=== PATIENT | female | born 1980 | race Hispanic/Latino ===

== ENCOUNTER 2024-04-11 18:18 | Emergency (ER) | payer OTHER ==
[~2024-04-11] VITALS: Ht 157.5 cm; Wt 91.2 kg
[2024-04-11 19:31] LABS: ADD UA MICROSCOPIC YES; APPEARANCE,URINE CLOUDY (CLEAR); BILIRUBIN,URINE NEGATIVE (NEGATIVE); COLOR,URINE YELLOW (YELLOW); GLUCOSE, URINE (UA) 50 mg/dL (NEGATIVE); KETONES,URINE 10 mg/dL (NEGATIVE); LEUKOCYTE ESTERASE ,URINE NEGATIVE Leu/uL (NEGATIVE); NITRATE,URINE NEGATIVE (NEGATIVE); OCCULT BLOOD,URINE LARGE (NEGATIVE); PH,URINE 5.5 (5.0-8.0); PROTEIN,URINE 70 mg/dL (NEGATIVE)
[2024-04-11 19:33] LABS: BACTERIA,URINE RARE /HPF (None Seen); MUCUS,URINE FEW LPF (None Seen); RBC,URINE >100 /HPF (0-1); SQUAMOUS EPITHELIAL CELL,UR RARE /HPF (0-2); UNCLASSIFIED CRYSTAL 5 /HPF (None Seen)
[2024-04-11] MEDS: morPHINE 2 MG SYG IVP STA (20:00)
[2024-04-11] MEDS: 0.9%NACL 1000ML 1,000 ML IV STA (20:00)
[2024-04-11] MEDS: ondanSETRON 4MG INJ IVP STA (20:00)
[2024-04-11] MEDS: cefTRIAXone 1G VIAL IVPB STA (20:40)
[2024-04-11] MEDS: ketOROlac 15MG/ML VIAL (15MG/ML) IV STA (20:40)
[2024-04-11] MEDS: hydroMORPHone 1 MG INJ ONE (20:41)
[2024-04-11] MEDS: hydroMORPHone 1 MG INJ IVP ONE (20:41)
[2024-04-11 20:42] LABS: BASOPHILS # (AUTO) 0.05 K/uL (0.00-0.20); BASOPHILS % (AUTO) 0.4 % (0.0-5.0); EOSINOPHILS # (AUTO) 0.34 K/uL (0.00-0.70); EOSINOPHILS % (AUTO) 2.8 % (0.0-8.0); HEMATOCRIT 39.7 % (36-48); IMMATURE GRANULOCYTE ABSOLUTE 0.05 K/uL (0-1); LYMPHOCYTES # (AUTO) 4.6 K/uL (1.0-4.8); LYMPHOCYTES % (AUTO) 37.8 % (21.0-51.0); MEAN CORPUSCULAR HEMOGLOBIN 29.5 pg (27.0-33.0); MEAN CORPUSCULAR HGB CONC 34.3 g/dL (32.0-36.0); MEAN CORPUSCULAR VOLUME 86.1 fL (79-99); MONOCYTES # (AUTO) 0.7 K/uL (0.1-1.0); MONOCYTES % (AUTO) 5.5 % (3.0-13.0); NEUTROPHILS # (AUTO) 6.5 K/uL (1.8-7.7); NEUTROPHILS % (AUTO) 53.1 % (40.0-77.0); PLATELET COUNT (AUTO) 338 K/uL (130-400); RED BLOOD CELL COUNT(AUTO) 4.61 MIL/uL (4.00-5.50); RED CELL DISTRIBUTION WIDTH 13.7 % (11.0-15.5); WHITE BLOOD COUNT (AUTO) 12.3 K/uL (4.8-10.8)
--- NOTE | 2024-04-11 21:07 | ERN ---
ED Note History of Present Illness Stated Complaint: LOWER ABDOMINAL PAIN Chief Complaint: Abdominal Pain Time Seen by MD: 18:26 Time Seen by Midlevel: 18:33 Dictation: 44-year-old female with no past medical history complaining of severe left lower quadrant pain radiating to suprapubic area. Patient states she has a history of kidney stones, has been constipated for three days and took magnesium citrate this morning. Patient states she has a history of a hysterectomy in November. Allergies: Coded Allergies: No Known Drug Allergies (Unverified Allergy, Unknown, 04/11/24) Past Medical History Past Medical History: Unknown Surgical History: None Review of System Dictation Constitutional: Negative for fever,chills, and weight loss Eyes: Negative for injury, pain,redness, and discharge ENT: Negative for injury,pain or swelling Cardiovascular: Negative for chest pain, palpitations, and edema Respiratory: Negative for shortness of breath, cough, and wheezing, Abdomen/GI: Complaining of left lower quadrant pain and suprapubic pain, nausea, vomiting, diarrhea, and constipation Back: Negative for injury and pain : Negative for injury, bleeding and discharge MS/Extremity: Negative for injury and deformity Skin: Negative for rash, and discoloration Neuro: Negative for headache, weakness, numbness, tingling, and seizure Psych: Negative for suicide ideation, homicidal ideation, and hallucinations Review of Systems: was completed Initial Vital Sign VS Vital Signs Date Time Temp Pulse Resp B/P (MAP) Pulse Ox O2 Delivery O2 Flow Rate FiO2 04/11/24 19:16 98.1 96 20 130/90 97 Room Air 04/11/24 20:00 0 21 Physical Exam Dictation General: awake, alert, NAD Head/Face: Normocephalic, atraumatic Eyes: PERRL, EOMI, vision at baseline ENT: oral cavity clear, TMs clear, no signs of infection Neck: Trachea midline, supple, no nuchal rigidity Cardiovascular: RRR, normal S1/S2, No MRGs, no JVD Respiratory: CTAB, no respiratory distress, No rales or wheezes Abdomen: Soft, severe left lower quadrant pain and suprapubic pain , non- distended, normal bowel sounds, no guarding or rebound. Skin: Warm, dry, normal turgor, no rash MS/Extremity: Pulses equal, no cyanosis, neurovascular intact, FROM Neuro: COAx4, GCS 15, strength 5/5, CN 2-12 intact, normal cerebellar exam, normal gait, Psych: Normal behavior, mood, and affect normal Results (Laboratory/Radiology) Laboratory/Radiology Laboratory Tests Test 04/11/24 19:22 04/11/24 19:52 Urine Color YELLOW (YELLOW) Urine Appearance CLOUDY (CLEAR) H Urine pH 5.5 (5.0-8.0) Urine Specific [employer] [place] 1.029 (1.001-1.031) Urine Protein 70 mg/dL (NEGATIVE) H Urine Glucose (UA) 50 mg/dL (NEGATIVE) H Urine Ketones 10 mg/dL (NEGATIVE) H Urine Occult Blood LARGE (NEGATIVE) H Urine Nitrate NEGATIVE (NEGATIVE) Urine Bilirubin NEGATIVE mg/dL (NEGATIVE) Urine Urobilinogen 2.0 mg/dL (0.2-1.0) H Urine Leukocyte Esterase NEGATIVE Rk/uL Urine RBC >100 /HPF (0-1) H Urine WBC 11-25 /HPF (0-1) H Urine Squamous Epithelial Cells RARE /HPF (0-2) Urine Other Crystals (Auto) 5 /HPF (None Seen) Urine Bacteria RARE /HPF (None Seen) White Blood Count 12.3 K/uL (4.8-10.8) H Red Blood Count 4.61 MIL/uL (4.00-5.50) Hemoglobin 13.6 g/dL (12.0-16.0) Hematocrit 39.7 % (36-48) Mean Corpuscular Volume 86.1 fL (79-99) Mean Corpuscular Hemoglobin 29.5 pg (27.0-33.0) Mean Corpuscular Hemoglobin Concent 34.3 g/dL (32.0-36.0) Red Cell Distribution Width 13.7 % (11.0-15.5) Platelet Count 338 K/uL (130-400) Mean Platelet Volume 10.0 fL (7.5-10.5) Immature Granulocyte % (Auto) 0.4 % (0-1) Neutrophils (%) (Auto) 53.1 % (40.0-77.0) Lymphocytes (%) (Auto) 37.8 % (21.0-51.0) Monocytes (%) (Auto) 5.5 % (3.0-13.0) Eosinophils (%) (Auto) 2.8 % (0.0-8.0) Basophils (%) (Auto) 0.4 % (0.0-5.0) Neutrophils # (Auto) 6.5 K/uL (1.8-7.7) Lymphocytes # (Auto) 4.6 K/uL (1.0-4.8) Monocytes # (Auto) 0.7 K/uL (0.1-1.0) Eosinophils # (Auto) 0.34 K/uL (0.00-0.70) Basophils # (Auto) 0.05 K/uL (0.00-0.20) Absolute Immature Granulocyte (auto 0.05 K/uL (0-1) Nucleated Red Blood Cells 0.0 % (0.0-0.19) Urine HCG, Qualitative NEGATIVE (NEGATIVE) Sodium Level 143 mmol/L (136-145) Potassium Level 3.7 mmol/L (3.5-5.1) Chloride Level 108 mmol/L (101-111) Carbon Dioxide Level 24 mmol/L (21-32) Blood Urea Nitrogen 15 mg/dL (7-18) Creatinine 0.6 mg/dL (0.5-1.0) Glomerular Filtration Rate Calc 115 mL/min (>90) Random Glucose 114 mg/dL (70-105) H Total Calcium 9.1 mg/dL (8.5-10.1) Total Bilirubin 0.6 mg/dL (0.2-1.0) Aspartate Amino Transf (AST/SGOT) 9 U/L (10-37) L Alanine Aminotransferase (ALT/SGPT) 13 U/L (12-78) Alkaline Phosphatase 80 U/L (50-136) Total Protein 7.1 g/dL (6.0-8.3) Albumin 3.4 g/dL (3.5-5.0) L Human Chorionic Gonadotropin, Quant 0 mIU/mL (0-5) Labs Reviewed?: Yes CT Scan Comment: [place] [id number] [id number] IMAGING REPORT Signed PATIENT: JULIANE RUSH MR#: [id number] : 1980 SEX: F AGE: 44 LOCATION: [facility] ORDER 37 STATUS: REG ER REPORT#: [id number] SERVICE 36 REASON: r/o kidney stone ORDERING PHYSICIAN: TYLER CHATTERJEE PROCEDURE: ABD PEL WO - CT ABDOMEN/PELVIS W/O CONTRAST CT ABDOMEN/PELVIS W/O CONTRAST CLINICAL HISTORY: Left inguinal pain COMPARISON: None TECHNIQUE: Sequential axial images of abdomen and pelvis without contrast and with sagittal and coronal reconstructions. CT was performed with one or more of the following dose reduction techniques: automated exposure control, adjustment of the mA and/or kV according to patient size, or use of iterative reconstruction technique FINDINGS: Lung bases are clear. The liver and spleen are unremarkable. The gallbladder is surgically absent. The pancreas and adrenal glands are unremarkable. There is punctate nonobstructing right renal calculus. There is a punctate calculus demonstrated sitting dependently in the bladder versus in the left ureteral terminus with minimal left hydronephrosis as well as a punctate nonobstructive left renal calculus. There is no identified bowel obstruction. Note is made of change from prior gastric band surgery with no identified bowel obstruction. There is a small fat-containing umbilical hernia. There is no identified free or free fluid. The uterus is surgically absent. The bony structures are unremarkable. IMPRESSION: Change for gastric band surgery. Minimal left hydronephrosis with punctate calculus demonstrated in the left ureteral terminus versus sitting dependently in the bladder. There is also punctate nonobstructive left renal upper pole calculus. DICTATED BY: JOSSELYN AZEVEDO DO DATE: 04/11/242117 ELECTRONICALLY SIGNED BY: JOSSELYN AZEVEDO DO DATE: 04/11/242125 ED Course ED Course Orders Procedure Category Date Status Time Cbc With Differential LAB 04/11/24 Complete 18:54 Comprehensive LAB 04/11/24 Complete Metabolic Panel 18:54 Urinalysis Profile LAB 04/11/24 Complete 18:54 Hcg,Quantitative LAB 04/11/24 Complete 18:54 0.9%Nacl 1000ml (Ns PHA 04/11/24 Complete 1000ml) 18:54 Ondansetron 4mg Inj PHA 04/11/24 Complete (Zofran 4mg Inj) 18:54 Morphine 2mg Syg PHA 04/11/24 Complete (Morphine 2mg Syg) 18:54 Culture Urine AMBROSIO 04/11/24 In Process 19:34 Ct Abdomen/Pelvis W/O CT 04/11/24 Resulted Contrast 19:37 Ketorolac PHA 04/11/24 Complete Tromethamine 15mg/Ml 19:42 Ceftriaxone 1g Vial PHA 04/11/24 Complete (Rocephine 1g Inj) 19:42 Us Pelvic Non-Ob Comp US 04/11/24 Taken 19:55 ,Urine Test LAB 04/11/24 Complete 20:12 Hydromorphone 1 Mg PHA 04/11/24 Complete Inj (Dilaudid 1mg Inj 21:00 Hydromorphone 1 Mg PHA 04/11/24 Complete Inj (Dilaudid 1mg Inj 20:40 Tamsulosin Hcl PHA 04/11/24 Verified (Flomax) 22:02 Current Medications Medications (Trade) Dose Ordered Sig/Mindi Route PRN Reason Start Time Stop Time Status Last Admin Dose Admin Ceftriaxone Sodium (ROCEphine 1G INJ) 1 gm ONCE STAT IVPB 04/11/24 19:42 04/11/24 20:26 DC 04/11/24 20:40 Hydromorphone HCl (DiLAUDid 1MG INJ) 1 mg ONCE ONCE IVP 04/11/24 21:00 04/11/24 21:01 DC 04/11/24 20:41 Hydromorphone HCl (DiLAUDid 1MG INJ) 1 mg STK-MED ONCE .ROUTE 04/11/24 20:40 04/11/24 20:40 DC Ketorolac Tromethamine (toRADol) 15 mg ONCE STAT IV 04/11/24 19:42 04/11/24 20:26 DC 04/11/24 20:40 Morphine Sulfate (morPHINE 2MG SYG) 2 mg ONCE STAT IVP 04/11/24 18:54 04/11/24 18:57 DC 04/11/24 20:00 Ondansetron HCl (zoFRAN 4MG INJ) 4 mg ONCE STAT IVP 04/11/24 18:54 04/11/24 18:56 DC 04/11/24 20:00 Sodium Chloride 1,000 ml @ 1,000 mls/hr Q1H STAT IV 04/11/24 18:54 04/11/24 19:53 DC 04/11/24 20:00 Vital Signs Date Time Temp Pulse Resp B/P (MAP) Pulse Ox O2 Delivery O2 Flow Rate FiO2 04/11/24 20:00 98.1 108 23 131/85 98 Room Air* 0 21 04/11/24 19:16 98.1 96 20 130/90 97 Room Air Medical Decision Making MDM MDM: 44-year-old female with no past medical history complaining of severe left lower quadrant pain radiating to suprapubic area. Patient states she has a history of kidney stones, has been constipated for three days and took magnesium citrate this morning. Patient states she has a history of a hysterectomy in November.CBC shows mild leukocytosis of 12, no anemia, no thrombocytopenia. Chemistries unremarkable, normal kidney function. No transaminitis. Patient isn't . UA shows evidence of mild urinary tract infection with hematuria. CT scan of the abdomen with the contrast ordered along with non OB pelvic ultrasound to rule out any ovarian torsion or cyst. CT scan of the abdomen and pelvis shows minimal left hydronephrosis with punctate calculus demonstrated in the left ureteral turbinates versus sitting independently in bladder, there is also a nonobstructive left renal upper pole calculus. After pain medication patient states the pain has resolved. Discussed patient on findings and educated her that I will discharge patient on pain medication, Flomax and antibiotics. Educated patient on signs and symptoms on when to return back to the emergency room like fever, nausea, vomiting. Patient verbalized understanding, answered all questions. Differential diagnosis: UTI, SBO, diverticulitis, kidney stone, ovarian torsion, ovarian cyst Rationale: Tests considered and ordered secondary to shared decision making include: Previous outside records reviewed: Old ER visits. Risk of complication and/or morbidity or mortality of patient management: None Medications-Per medication reconciliation Need for hospitalization: Patient does not meet criteria for hospitalization. Need for emergency major/minor surgery: No There are no social concerns with this patient. Prescription drug management Prescriptions will include symptomatic care Patient's prior external medical records from other ER visits were reviewed by me as indicated. Prior testing and results from previous visits were reviewed. Prior tests were taken into account with medical decision making and resource utilization, independent historian/historians were used to obtain complete medical history. I independently interpreted the test that were performed, results were reviewed by me and considered findings on radiology if ordered. Medical management and examination interpretation discussions were had by me with other qualified healthcare professionals as indicated for the patient's care. DX & DISP Disposition: Discharge Departure Impression: Primary Impression: Kidney stone on left side Condition: Stable Scripts Sulfamethoxazole/Trimethoprim (Bactrim Ds Tablet) 800 Mg-160 Mg Tablet 1 TAB PO BID for 7 Days, #14 TAB 0 Refills Prov: FRANCISCO KUMARI [employer] 04/11/24 Lactulose (Lactulose) 20 Gram/30 Ml Solution 30 ML PO DAILY for constipation for 30 Days, #900 ML 0 Refills Prov: FRANCISCO KUMARI [employer] 04/11/24 Ketorolac Tromethamine (Ketorolac Tromethamine) 10 Mg Tablet 1 TAB PO Q6HPRN PRN for pain for 5 Days, #20 TAB 0 Refills Prov: FRANCISCO KUMARI NP 04/11/24 Tamsulosin HCl (Flomax) 0.4 Mg Cap.er.24h 1 CAP PO DAILY for 30 Days, #30 CAP 0 Refills Prov: FRANCISCO KUMARI [employer] 04/11/24 Additional Instructions: You can add Tylenol to control your pain aside from the ketorolac that I prescribed. Please return to the emergency room if you develop fevers, nausea, vomiting or back pain. Follow up with primary doctor or urologist in 1-2 days. Referrals: JUANA WOLF MD (PCP) SUMEET NICKERSON MD Time of Disposition: 22:08 I have reviewed the case, and I agree with, Diagnosis and Plan FRANCISCO KUMARI NP Apr 11, 2024 21:07
[2024-04-11 21:11] LABS: CREATININE 0.6 mg/dL (0.5-1.0); POTASSIUM 3.7 mmol/L (3.5-5.1)
[2024-04-11 21:22] LABS: ALBUMIN 3.4 g/dL (3.5-5.0); BILIRUBIN,TOTAL 0.6 mg/dL (0.2-1.0); TOTAL PROTEIN, SERUM 7.1 g/dL (6.0-8.3)
--- NOTE | 2024-04-11 21:26 | HMCIMG ---
CT ABDOMEN/PELVIS W/O CONTRAST CLINICAL HISTORY: Left inguinal pain COMPARISON: None TECHNIQUE: Sequential axial images of abdomen and pelvis without contrast and with sagittal and coronal reconstructions. CT was performed with one or more of the following dose reduction techniques: automated exposure control, adjustment of the mA and/or kV according to patient size, or use of iterative reconstruction technique FINDINGS: Lung bases are clear. The liver and spleen are unremarkable. The gallbladder is surgically absent. The pancreas and adrenal glands are unremarkable. There is punctate nonobstructing right renal calculus. There is a punctate calculus demonstrated sitting dependently in the bladder versus in the left ureteral terminus with minimal left hydronephrosis as well as a punctate nonobstructive left renal calculus. There is no identified bowel obstruction. Note is made of change from prior gastric band surgery with no identified bowel obstruction. There is a small fat-containing umbilical hernia. There is no identified free or free fluid. The uterus is surgically absent. The bony structures are unremarkable. IMPRESSION: Change for gastric band surgery. Minimal left hydronephrosis with punctate calculus demonstrated in the left ureteral terminus versus sitting dependently in the bladder. There is also punctate nonobstructive left renal upper pole calculus.
[2024-04-11] MEDS ORDERED: LACT10SO9 PO (22:08)
[2024-04-11] MEDS ORDERED: KETO10TA2 PO (22:08)
[2024-04-11] MEDS ORDERED: SULF1TAB42 PO (22:08)
[2024-04-11] MEDS ORDERED: TAMS-1 PO (22:08)
[2024-04-11] MEDS: tamSULOsin HCL 0.4 MG CAP.ER.24H PO STA (22:12)
[2024-04-11 22:13] VITALS: BP 129/79; PULSE 87; RESP 19; TEMP 98.3; O2SAT 98
--- NOTE | 2024-04-11 23:38 | HMCIMG ---
US PELVIC NON-OB COMP HISTORY: 04/11/2024 COMPARISON: None TECHNIQUE: Transabdominal pelvic ultrasound study was performed. FINDINGS: The uterus has been removed. The right ovary is not well visualized. The left ovary measures 2 x 1.8 x 2.3 cm. The study is limited due to overlying bowel gas. Fluid is seen in left ovary. No free fluid is seen in the cul-de-sac. IMPRESSION: 1. No adnexal mass is seen.
== END 2024-04-11 22:18 | disposition home or self-care (01) ==
LOC: EDH 18:18
DX: N13.2 Hydronephrosis with renal and ureteral calculous obstruction (principal); R10.2 Pelvic and perineal pain
CPT/HCPCS: 99285; 74176; 96374; 96375; 76856; 96361; 80053; 84702; 85025; 87086; 81001; 81025; 36415; J1885; J1171; J2270; J7030; J0696; J2405

== ENCOUNTER 2024-07-18 09:15 | Emergency (ER) | payer OTHER ==
[~2024-07-18] VITALS: Ht 157.5 cm; Wt 90.7 kg
[~2024-07-18 09:15] MED LIST: KETO10TA2 PO; LACT10SO9 PO; SULF1TAB42 PO; TAMS-55 PO
--- NOTE | 2024-07-18 09:26 | ERN ---
General Chief Complaint: Abdominal Pain Stated Complaint: ABD PAIN, DIARRHEA Time Seen by MD: 09:17 Source: patient History of Present Illness Initial Comments Patient is a 44-year-old female coming in with diarrhea. She states that these symptoms began three days ago she was states that she does not recall having eaten anything abnormal. She does disclose that she does smoke marijuana. Allergies: Coded Allergies: No Known Drug Allergies (Unverified Allergy, Unknown, 04/11/24) Home Meds Active Scripts Sulfamethoxazole/Trimethoprim (Bactrim Ds Tablet) 800 Mg-160 Mg Tablet, 1 TAB PO BID for 7 Days, #14 TAB 0 Refills Prov:FRANCISCO KUMARI PROGRAM MANAGER RN 04/11/24 Lactulose (Lactulose) 20 Gram/30 Ml Solution, 30 ML PO DAILY for constipation for 30 Days, #900 ML 0 Refills Prov:FRANCISCO KUMARI PROGRAM MANAGER RN 04/11/24 Ketorolac Tromethamine (Ketorolac Tromethamine) 10 Mg Tablet, 1 TAB PO Q6HPRN PRN for pain for 5 Days, #20 TAB 0 Refills Prov:FRANCISCO KUMARI PROGRAM MANAGER RN 04/11/24 Tamsulosin HCl (Flomax) 0.4 Mg Cap.er.24h, 1 CAP PO DAILY for 30 Days, #30 CAP 0 Refills Prov:FRANCISCO KUMARI PROGRAM MANAGER RN 04/11/24 Past Medical History Past Medical History: Diabetes-Type II, Hypertension, Unknown Past Surgical History: Hysterectomy, Cholecystectomy, Surgical History Other: LT ANKLE ROS Dictation CONSTITUTIONAL: No chills, no fever, no weakness, no diaphoresis, no malaise. HEAD/FACE: No signs of trauma. EENT: No eye pain, no blurred vision, no tearing, no double vision, no ear pain, no ear discharge, no nose pain, no nasal congestion, no throat pain, no throat swelling, no mouth pain. RESPIRATORY: No cough, no orthopnea, no SOB, no stridor, no wheezing. CARDIOVASCULAR: No chest pain, no edema, no palpitations, no syncope. GASTROINTESTINAL/ABDOMINAL: No abdominal pain, no constipation, no diarrhea, no nausea, no vomiting. GENITOURINARY: No abnormal discharge, no dysuria, no frequent urination, no hematuria. No complaints of pain in the genitals. MUSCULOSKELETAL: No back pain, no gout, no joint pain, no joint swelling, no muscle pain, no muscle stiffness, no neck pain. INTEGUMENTARY: No change in color, no change in hair/nails, no dryness, no lesion, no lumps, no rash. NEUROLOGICAL/PSYCH: No anxiety, not depressed, no emotional problem, no headache, no numbness, no pre-existing deficit, no history of seizures, no tremors, no weakness. HEMATOLOGIC/LYMPHATIC: Not anemic, no history of blood clots, no apparent bleeding, no bruising, glands not swollen. All Systems Negative, Except as Noted. Physical Exam Physical Exam Dictation VITAL SIGNS: Reviewed. GENERAL APPEARANCE: Alert, oriented x3, no acute distress, obese. HEAD AND FACE: Non-traumatic. EYES: PERRL, pink conjunctivas, eyelid no trauma, anterior chamber clear. EARS: Pinnas intact and no signs of trauma or erythema. Ear canals clear and no discharge. TMs no erythema. NOSE: No discharge, no bleeding. OROPHARYNX: Mouth normal, teeth no caries, tongue pink. Pharynx clear, no erythema. Tonsils no exudates, no abscesses noted. Mucous membrane moist. NECK: Supple, non-tender, no thyromegaly, no masses, no JVD, no bruits. BREAST: Deferred. CHEST: No tenderness, no crepitus, no paradoxical movement, no retractions. LUNGS: Clear, well-ventilated, symmetric, no rales, no wheezing, no rhonchi, no stridor, good breath sounds bilaterally. HEART: Regular rate, regular rhythm, no murmur, no gallops. VASCULAR: No peripheral edema. ABDOMEN: Soft, positive bowel sounds, nondistended, no guarding, nontender, no rebound, no masses no hepatomegaly, no splenomegaly, no Foster's sign, no he rnias. RECTAL: Deferred. GENITAL: Deferred. NEUROLOGICAL: Normal speech, gross motor function intact, gross sensory functio n intact. MUSCULOSKELETAL: Neck nontender, full range of motion, back nontender, full range of motion. EXTREMITIES: Nontender, full range of motion. SKIN: Color pink, dry, no turgor, no rash, no lacerations, no abrasions, no contusions. LYMPHATICS: Deferred. Results Laboratory and Microbiology Lab and Micro Result Laboratory Tests Test 07/18/24 09:46 07/18/24 10:45 White Blood Count 9.8 K/uL (4.8-10.8) Red Blood Count 5.02 MIL/uL (4.00-5.50) Hemoglobin 15.0 g/dL (12.0-16.0) Hematocrit 44.9 % (36-48) Mean Corpuscular Volume 89.4 fL (79-99) Mean Corpuscular Hemoglobin 29.9 pg (27.0-33.0) Mean Corpuscular Hemoglobin Concent 33.4 g/dL (32.0-36.0) Red Cell Distribution Width 13.3 % (11.0-15.5) Platelet Count 318 K/uL (130-400) Mean Platelet Volume 9.7 fL (7.5-10.5) Immature Granulocyte % (Auto) 0.2 % (0-1) Neutrophils (%) (Auto) 63.2 % (40.0-77.0) Lymphocytes (%) (Auto) 28.7 % (21.0-51.0) Monocytes (%) (Auto) 5.3 % (3.0-13.0) Eosinophils (%) (Auto) 2.2 % (0.0-8.0) Basophils (%) (Auto) 0.4 % (0.0-5.0) Neutrophils # (Auto) 6.2 K/uL (1.8-7.7) Lymphocytes # (Auto) 2.8 K/uL (1.0-4.8) Monocytes # (Auto) 0.5 K/uL (0.1-1.0) Eosinophils # (Auto) 0.22 K/uL (0.00-0.70) Basophils # (Auto) 0.04 K/uL (0.00-0.20) Absolute Immature Granulocyte (auto 0.02 K/uL (0-1) Nucleated Red Blood Cells 0.0 % (0.0-0.19) Sodium Level 135 mmol/L (136-145) L Potassium Level 3.7 mmol/L (3.5-5.1) Chloride Level 100 mmol/L (101-111) L Carbon Dioxide Level 25 mmol/L (21-32) Blood Urea Nitrogen 9 mg/dL (7-18) Creatinine 0.7 mg/dL (0.5-1.0) Glomerular Filtration Rate Calc 111 mL/min (>90) Random Glucose 104 mg/dL (70-105) Total Calcium 8.8 mg/dL (8.5-10.1) Total Bilirubin 1.2 mg/dL (0.2-1.0) H Aspartate Amino Transf (AST/SGOT) 13 U/L (10-37) Alanine Aminotransferase (ALT/SGPT) 15 U/L (12-78) Alkaline Phosphatase 84 U/L (50-136) Total Creatine Kinase 35 U/L (21-232) Troponin I High Sensitivity < 4 ng/L (4-50) L Total Protein 7.4 g/dL (6.0-8.3) Albumin 3.7 g/dL (3.5-5.0) Lipase 78 U/L (16-77) H Urine Color LIGHT-YELLOW (YELLOW) Urine Appearance CLEAR (CLEAR) Urine pH 5.5 (5.0-8.0) Urine Specific [place] 1.024 (1.001-1.031) Urine Protein NEGATIVE mg/dL (NEGATIVE) Urine Glucose (UA) >=1000 mg/dL (NEGATIVE) H Urine Ketones 100 mg/dL (NEGATIVE) H Urine Occult Blood +- (TRACE) (NEGATIVE) H Urine Nitrate NEGATIVE (NEGATIVE) Urine Bilirubin NEGATIVE mg/dL (NEGATIVE) Urine Urobilinogen 0.2 mg/dL (0.2-1.0) Urine Leukocyte Esterase NEGATIVE Rk/uL Urine RBC 6-10 /HPF (0-1) H Urine WBC 0-1 /HPF (0-1) Urine Squamous Epithelial Cells Few /HPF (0-2) Urine Bacteria None Seen /HPF (None Seen) Urine HCG, Qualitative NEGATIVE (NEGATIVE) Urine Opiates Screen NEGATIVE (NEGATIVE) Urine Barbiturates Screen NEGATIVE (NEGATIVE) Urine Phencyclidine Screen NEGATIVE (NEGATIVE) Urine Amphetamines Screen NEGATIVE (NEGATIVE) Urine Benzodiazepines Screen NEGATIVE (NEGATIVE) Urine Cocaine Screen NEGATIVE (NEGATIVE) Urine Marijuana (THC) Screen POSITIVE (NEGATIVE) H Labs Reviewed?: Yes EKG/XRAY/US/CT/MRI EKG Comment 07/18/2024 time 9:38 a.m. Ventricular rate 90 Sinus rhythm [place] [address] wave elevation or depression X-RAY Comment [place] [address] [place] [id number] IMAGING REPORT Signed PATIENT: JULIANE RUSH MR#: [id number] : 1980 SEX: F AGE: 44 LOCATION: [facility] ORDER 0 STATUS: REG ER REPORT#: [id number] SERVICE 9 REASON: cp ORDERING PHYSICIAN: KIM GARCIA MD PROCEDURE: CXR1VW - CHEST 1VW Exam Type: CHEST 1VW Clinical Information: cp Comparison: None Findings: The lungs are clear of infiltrates. The heart is normal in size. The bony and soft tissue structures of the chest are unremarkable. Impression: Clear lungs. DICTATED BY: CLARITA SHAHID MD DATE: 07/18/24950 ELECTRONICALLY SIGNED BY: CLARITA SHAHID MD DATE: 07/18/24955 MDM MDM: Differential diagnosis: Cannabis abuse gastroenteritis, medication side effects Rationale: Tests considered and ordered secondary to shared decision making include: Previous outside records reviewed: Old ER visits. Risk of complication and/or morbidity or mortality of patient management: None Patient is a 44-year-old female coming in to be evaluated for diarrhea abdominal discomfort. She states that she was recently started on Mounjaro and has been smoking cannabis. Laboratory workup she was dehydrated received IV fluids as well as IV Protonix she states her symptoms improved. I did advise her to abstain from smoking marijuana and to follow up with the PCP to scale back on the Mounjaro. ED Course Orders Procedure Category Date Status Time Cbc With Differential LAB 07/18/24 Complete 09:20 Comprehensive LAB 07/18/24 Complete Metabolic Panel 09:20 Troponin I High LAB 07/18/24 Complete Sensitivity 09:20 ,Urine Test LAB 07/18/24 Complete 09:20 Urinalysis Profile LAB 07/18/24 Complete 09:20 12 Lead Ekg Tracing- EKG 07/18/24 Complete Technical 09:20 Lactated Ringers PHA 07/18/24 Complete 1000ml (Lactated 09:30 Ondansetron 4mg Inj PHA 07/18/24 Complete (Zofran 4mg Inj) 09:30 Lidocaine Hcl 2% PHA 07/18/24 Complete Viscous (Lidocaine Hcl 09:30 Mag/Alum/Simeth 30ml PHA 07/18/24 Complete (Maalox Plus 30ml) 09:30 Pantoprazole 40mg Inj PHA 07/18/24 Complete (Protonix 40mg Inj 09:30 Creatine Kinase, Total LAB 07/18/24 Complete 09:20 Chest 1vw RAD 07/18/24 Resulted 09:20 Lipase LAB 07/18/24 Complete 09:20 Drug Screen Urine LAB 07/18/24 Complete 09:24 0.9%Nacl 1000ml (Ns PHA 07/18/24 In Process 1000ml) 10:00 Ketorolac PHA 07/18/24 Complete Tromethamine 30mg/Ml 10:30 Ketorolac PHA 07/18/24 Complete Tromethamine 30mg/Ml 10:30 Current Medications Medications (Trade) Dose Ordered Sig/Mindi Route PRN Reason Start Time Stop Time Status Last Admin Dose Admin Al Hydroxide/Mg Hydroxide (MAALox PLUS 30ML) 30 ml ONCE ONCE PO 07/18/24 09:30 07/18/24 09:31 DC 07/18/24 09:38 Ketorolac Tromethamine (toRADol) 30 mg ONCE ONCE IVP 07/18/24 10:30 07/18/24 10:32 DC 07/18/24 10:32 Ketorolac Tromethamine (toRADol) 30 mg STK-MED ONCE .ROUTE 07/18/24 10:30 07/18/24 10:31 DC Lactated Ringer's 1,000 ml @ 0 mls/hr ONCE ONCE IV 07/18/24 09:30 07/18/24 09:31 DC 07/18/24 09:38 Lidocaine HCl (Lidocaine HCl 2% Viscous) 10 ml ONCE ONCE PO 07/18/24 09:30 07/18/24 09:31 DC 07/18/24 09:38 Ondansetron HCl (zoFRAN 4MG INJ) 4 mg ONCE ONCE IVP 07/18/24 09:30 07/18/24 09:31 DC 07/18/24 09:39 Pantoprazole Sodium (PROTonix 40MG INJ) 40 mg ONCE ONCE IVP 07/18/24 09:30 07/18/24 09:31 DC 07/18/24 09:38 Sodium Chloride 2,721 ml @ 907 mls/hr ONCE ONCE IV 07/18/24 10:00 07/18/24 12:59 Vital Signs Date Time Temp Pulse Resp B/P (MAP) Pulse Ox O2 Delivery O2 Flow Rate FiO2 07/18/24 09:16 98.2 90 16 125/83 99 Room Air 0 DX & DISP Disposition: Discharge Departure Impression: Primary Impression: Medication side effect Additional Impressions: Cannabis abuse, Gastroenteritis Condition: Stable Scripts Lactobacillus Acidophilus (Acidophilus Probiotic) 500 Million Cell Capsule 1 CAP PO BID for 10 Days, #20 CAP 0 Refills Prov: KIM GARCIA MD 07/18/24 Pantoprazole Sodium (Protonix) 40 Mg Ectab 1 TAB PO DAILY for 30 Days, #30 TAB 0 Refills Prov: KIM GARCIA MD 07/18/24 Additional Instructions: FOLLOW-UP WITH PRIMARY CARE PROVIDER IN 1 TO 2 DAYS. TAKE MEDICATIONS DIRECTED HERE IN THE EMERGENCY ROOM. OKAY TO CONTINUE HOME MEDICATIONS UNLESS OTHERWISE DISCUSSED DURING YOUR VISIT IN THE EMERGENCY ROOM TODAY. RETURN TO YOUR NEAREST EMERGENCY ROOM IF SYMPTOMS WORSEN OR IF THERE IS NO IMPROVEMENT. CALL 911 IF YOU NEED IMMEDIATE ASSISTANCE. TAKE TYLENOL [id number] NEEDED AND IF NO CONTRAINDICATIONS ARE PRESENT. INCREASE ORAL HYDRATION. A WOUND CULTURE OR URINE CULTURE WAS ORDERED HERE IN THE EMERGENCY ROOM DEPARTMENT PLEASE FOLLOW-UP WITH PRIMARY CARE PROVIDER AND ADVISE THEM TO GET REPEAT PORTS FROM OUR FACILITY. IF YOU HAD ANY DE WRAP/SPLINTS THAT WERE APPLIED HERE, PLEASE DO NOT REMOVE THEM UNTIL YOU SEE YOUR PRIMARY CARE OR SPECIALTY. Referrals: Referrals: JUANA WOLF MD (PCP) Time of Disposition: 11:41 KIM GARCIA MD Jul 18, 2024 09:26
[2024-07-18] MEDS: MAG/ALUM/SIMETH 30 ML UDCUP PO ONE (09:38)
[2024-07-18] MEDS: LACTATED RINGERS 1000ML 1,000 ML IV ONE (09:38)
[2024-07-18] MEDS: PANTOPrazole 40 MG/VIAL IVP ONE (09:38)
[2024-07-18] MEDS: LIDOCAINE HCL 2% VISCOUS 15 ML UDCUP PO ONE (09:38)
[2024-07-18] MEDS: ondanSETRON 4MG INJ IVP ONE (09:39)
--- NOTE | 2024-07-18 09:40 | EKG ---
[facility] Test Date: 2024-07-18 Test Time: 09:38:04 Pat Name: JULIANE RUSH Department: [facility] Room: Gender: F Public Address Servicer: [id number] : 1980 Requested By: KIM GARCIA Order Number: [id number] Reading MD: Heath Chong Measurements Intervals [place] Rate: 90 P: 30 CO: 152 QRS: -2 QRSD: 80 T: 30 QT: 369 QTc: 451 Interpretive Statements Sinus rhythm No previous ECG available for comparison Electronically Signed On 07-19-2024 20:35:28 CDT by Heath Chong Please click the below link to view image of tracing.
--- NOTE | 2024-07-18 09:56 | HMCIMG ---
Exam Type: CHEST 1VW Clinical Information: cp Comparison: None Findings: The lungs are clear of infiltrates. The heart is normal in size. The bony and soft tissue structures of the chest are unremarkable. Impression: Clear lungs.
[2024-07-18 10:02] LABS: BASOPHILS # (AUTO) 0.04 K/uL (0.00-0.20); BASOPHILS % (AUTO) 0.4 % (0.0-5.0); EOSINOPHILS # (AUTO) 0.22 K/uL (0.00-0.70); EOSINOPHILS % (AUTO) 2.2 % (0.0-8.0); HEMATOCRIT 44.9 % (36-48); IMMATURE GRANULOCYTE ABSOLUTE 0.02 K/uL (0-1); LYMPHOCYTES # (AUTO) 2.8 K/uL (1.0-4.8); LYMPHOCYTES % (AUTO) 28.7 % (21.0-51.0); MEAN CORPUSCULAR HEMOGLOBIN 29.9 pg (27.0-33.0); MEAN CORPUSCULAR HGB CONC 33.4 g/dL (32.0-36.0); MEAN CORPUSCULAR VOLUME 89.4 fL (79-99); MONOCYTES # (AUTO) 0.5 K/uL (0.1-1.0); MONOCYTES % (AUTO) 5.3 % (3.0-13.0); NEUTROPHILS # (AUTO) 6.2 K/uL (1.8-7.7); NEUTROPHILS % (AUTO) 63.2 % (40.0-77.0); PLATELET COUNT (AUTO) 318 K/uL (130-400); RED BLOOD CELL COUNT(AUTO) 5.02 MIL/uL (4.00-5.50); RED CELL DISTRIBUTION WIDTH 13.3 % (11.0-15.5); WHITE BLOOD COUNT (AUTO) 9.8 K/uL (4.8-10.8)
[2024-07-18 10:07] LABS: CREATININE 0.7 mg/dL (0.5-1.0); POTASSIUM 3.7 mmol/L (3.5-5.1)
[2024-07-18 10:12] LABS: ALBUMIN 3.7 g/dL (3.5-5.0); BILIRUBIN,TOTAL 1.2 mg/dL (0.2-1.0); TOTAL PROTEIN, SERUM 7.4 g/dL (6.0-8.3)
[2024-07-18] MEDS: 0.9%NACL 1000ML 2,721 ML IV ONE (10:23)
--- NOTE | 2024-07-18 10:23 | NUR ---
HOLD NS BOLUS PER DR GARCIA.
[2024-07-18] MEDS: ketOROlac 30MG VIAL (30MG/ML) ONE (10:32)
[2024-07-18] MEDS: ketOROlac 30MG VIAL (30MG/ML) IVP ONE (10:32)
[2024-07-18 11:06] LABS: APPEARANCE,URINE CLEAR (CLEAR); BILIRUBIN,URINE NEGATIVE (NEGATIVE); COLOR,URINE LIGHT-YELLOW (YELLOW); GLUCOSE, URINE (UA) >=1000 mg/dL (NEGATIVE); KETONES,URINE 100 mg/dL (NEGATIVE); LEUKOCYTE ESTERASE ,URINE NEGATIVE Leu/uL (NEGATIVE); NITRATE,URINE NEGATIVE (NEGATIVE); PH,URINE 5.5 (5.0-8.0); PROTEIN,URINE NEGATIVE (NEGATIVE); UROBILINOGEN,URINE 0.2 mg/dL (0.2-1.0)
[2024-07-18 11:07] LABS: AMPHET/METH SCREEN,URINE NEGATIVE (NEGATIVE); BARBITURATE SCREEN, URINE NEGATIVE (NEGATIVE); BENZODIAZEPINES SCREEN,URINE NEGATIVE (NEGATIVE); CANNABINOID SCREEN,URINE POSITIVE (NEGATIVE); COCAINE SCREEN,URINE NEGATIVE (NEGATIVE); OPIATE SCREEN,URINE NEGATIVE (NEGATIVE); PHENCYCLIDINE SCREEN,URINE NEGATIVE (NEGATIVE)
[2024-07-18 11:11] LABS: ADD UA MICROSCOPIC YES
[2024-07-18 11:25] LABS: BACTERIA,URINE None Seen /HPF (None Seen); HCG,QUALITATIVE URINE NEGATIVE (NEGATIVE); SQUAMOUS EPITHELIAL CELL,UR Few /HPF (0-2); WBC,URINE 0-1 /HPF (0-1)
[2024-07-18] MEDS ORDERED: PANT40TA55 PO (11:42)
[2024-07-18] MEDS ORDERED: LACT-356 PO (11:42)
[2024-07-18 11:56] VITALS: BP 128/74; PULSE 78; RESP 18; TEMP 97.8; O2SAT 97
== END 2024-07-18 12:10 | disposition home or self-care (01) ==
LOC: EDH 09:15
DX: K52.1 Toxic gastroenteritis and colitis (principal); T40.715A Adverse effect of cannabis, initial encounter; E11.9 Type 2 diabetes mellitus without complications; I10 Essential (primary) hypertension; Z79.899 Other long term (current) drug therapy; Z90.49 Acquired absence of other specified parts of digestive tract; Z90.710 Acquired absence of both cervix and uterus; Z98.890 Other specified postprocedural states; Y92.89 Other specified places as the place of occurrence of the external cause
CPT/HCPCS: 99285; 96374; 96375; 71045; 96361; 82550; 84484; 80053; 80305; 83690; 85025; 81025; 36415; 93005; 81001; J1885; J7120; J2405; J2470